=== PATIENT | female | born 1970 | race Caucasian/White ===

== ENCOUNTER → 2022-09-19 | Outpatient (CLI) | payer OTHER, SELFPAY ==
[2022-09-21 21:07] LABS: HPV APTIMA, High Risk Negative (Negative)
== END | disposition home or self-care (01) ==
LOC: LABSPEC 10:40
PROVIDERS: PCP Family Medicine; Visit Provider Nurse Practitioner Women's Health
DX: Z12.4 Encounter for screening for malignant neoplasm of cervix (principal)
CPT/HCPCS: 87624; 88175; G0145

== ENCOUNTER → 2022-10-25 | Outpatient (CLI) | payer OTHER, SELFPAY ==
[2022-10-25 17:19] LABS: Estradiol 26.8 pg/mL; Follicle Stimulating Hormone 68.9 mIU/mL; Luteinizing Hormone 36.8 mIU/mL
[2022-10-25 17:20] LABS: Progesterone Level 0.25 ng/mL (See Comment)
== END | disposition home or self-care (01) ==
LOC: WOBLAB 16:08
PROVIDERS: PCP Family Medicine; Visit Provider Student in an Organized Health Care Education/Training Program
DX: N95.0 Postmenopausal bleeding (principal)
CPT/HCPCS: 36415; 82670; 83001; 83002; 84144

== ENCOUNTER → 2022-11-09 | Outpatient (CLI) | payer OTHER, SELFPAY ==
--- NOTE | 2022-11-09 | EMB_PTH ---
PATIENT: GOLDY TENORIO LOC: [facility] U#:[id number] AGE/SX: 52/F ROOM: RE11/09/[address]: Dr. Estela Masters DO : 1970 BED: DIS: 11/09/2022 SPEC #: [id number] RECD: 11/09/22 15:32 STATUS: MARANDA REFlako #: [id number] NIA: 11/09/22 00:[address]: Estela Masters DEPT: SURGICAL PATHOLOGY RECD BY: Ritu Coburn ENTERED: 11/10/22 10:17 SP TYPE: ENDOM BX/C ДМИТРИЙ DR: Dr. Prosper Wahl MD Tissues: Endometrium, NOS Procedures: Surgery Specimen Level IV HEADER OPERATION: Endometrial biopsy PRE-OP DIAGNOSIS: N95.0 TISSUE SUBMITTED: Endometrial biopsy MICROSCOPIC DIAGNOSIS Endometrial biopsy: Weakly proliferative endometrium. Focal mild chronic endometritis. SJ:davis 11/11/2022 MICROSCOPIC DESCRIPTION Slides are reviewed. GROSS DESCRIPTION Received is one container labeled with the patient's name and not further designated. The specimen consists of multiple irregular fragments of ribera mucoid tissue that in aggregate measure 2.5 x 0.5 x 0.1 cm. The specimen is totally submitted in one cassette. / SJ:davis 11/10/2022 TC:3 CPT: 84859
== END | disposition home or self-care (01) ==
LOC: WOBLAB 15:11
PROVIDERS: PCP Family Medicine; Visit Provider Student in an Organized Health Care Education/Training Program
DX: N95.0 Postmenopausal bleeding (principal); N71.1 Chronic inflammatory disease of uterus
CPT/HCPCS: 88305